=== PATIENT | female | born 1935 | race Caucasian/White ===

== ENCOUNTER → 2021-12-18 | Outpatient (CLI) | payer MEDICARE, BC | LOC: COL.RAD 10:54 | DX: I63.9 Cerebral infarction, unspecified (principal) ==

== ENCOUNTER → 2021-12-26 | Outpatient (CLI) | payer MEDICARE, BC ==
[~2021-12-26] MED LIST: ASPIRIN 81M81 MG/TA2 PO; CRESTOR5 MG PO; DULCOLAX STOOL100 MG PO; LIPITOR 40MG TA40 MG PO; LOPRESSOR 225 MG/TAB PO; MELATONIN3 M1 PO; MIRALAX PA17 GM/Dose PO; MYLANTA 150 ML150 M1 PO; NEURONTIN100 MG/CAP PO; PLAVIX 75MG TAB75 MG PO; PREPARATIO1 SUPP.REC RC; TYLENOL 325MG325 MG PO; ULTRAM 50MG TAB50 MG PO
== END ==
LOC: COL.RAD 11:03
DX: I69.398 Other sequelae of cerebral infarction (principal); G93.89 Other specified disorders of brain

== ENCOUNTER 2022-03-08 16:43 | Emergency (ER) | payer MEDICARE, BC ==
[~2022-03-08] VITALS: Ht 157.5 cm; Wt 52.7 kg
[2022-03-08 17:22] VITALS: TEMP 99.2
[2022-03-08 18:15] LABS: BASO % 0.5 % (0.0-2.0); EOS # 0.1 K/mm3 (0.0-0.7); EOS % 2.1 % (0.0-4.0); GRAN # 3.8 K/mm3 (1.4-6.5); GRAN % 62.2 % (42.2-75.2); HEMATOCRIT 37.3 % (37.0-47.0); HEMOGLOBIN 12.4 g/dl (12.5-16.0); LYMPH # 1.5 K/mm3 (1.2-3.4); LYMPH % 24.2 % (20.0-51.0); MEAN CELL VOLUME 91 fl (80.0-100.0); MEAN CORPUSCULAR HEMOGLOBIN 30 pg (27-31); MEAN CORPUSCULAR HGB CONC 33 g/dl (33.0-37.0); MEAN PLATELET VOLUME 8.8 fl (7.4-10.4); MONO # 0.6 K/mm3 (0.1-0.6); MONO % 10.4 % (1.7-9.3); PLATELET COUNT 282 K/mm3 (130-400); RED BLOOD COUNT 4.11 M/mm3 (4.10-5.30); REDCELL DISTRIBUTION WIDTH-CV 16.2 % (11.5-14.5)
[2022-03-08 18:20] LABS: INR 1.1 (0.8-3.0); PROTHROMBIN TIME 12.3 SECONDS (9.7-12.8)
[2022-03-08 18:32] LABS: ALBUMIN 3.3 gm/dL (3.4-4.8); BILIRUBIN,TOTAL 0.6 mg/dL (0.2-1.2); CALCIUM 8.8 mg/dL (8.4-10.2); CREATININE, serum 0.69 mg/dL (0.57-1.11); POTASSIUM 4.7 mmol/L (3.5-4.5); TOTAL PROTEIN 6.5 gm/dL (6.2-8.1)
[2022-03-08 18:38] LABS: TROPONIN-I 0.012 ng/mL (0.00-0.033)
[2022-03-08 19:02] LABS: COLLECTION METHOD CLEAN CATCH
[2022-03-08 19:06] LABS: URINE APPEARANCE Clear (CLEAR/HAZY); URINE COLOR Yellow (YELLOW); URINE PROTEIN(semi-quant) Negative (NEGATIVE)
[2022-03-08 19:07] LABS: URINE BLOOD TRACE-LYSED (NEGATIVE); URINE GLUCOSE Negative (NEGATIVE); URINE KETONE Negative (NEGATIVE); URINE NITRATE Negative (NEGATIVE); URINE UROBILINOGEN 0.2 E.U/dL (0.2-1.0)
[2022-03-08 19:09] LABS: SQUAMOUS EPITHELIAL None Seen /hpf (0-10); URINE BACTERIA None Seen /hpf (NONE SEEN); URINE RBC 0-2 /hpf (0-2)
[2022-03-08 19:50] VITALS: BP 160/96; PULSE 70
[2022-03-10] MEDS ORDERED: CEPHALEXIN500 M1 PO (15:39)
[2022-03-11] MEDS ORDERED: PEN-VEE K500 MG PO ×2 (13:49→14:47)
== END 2022-03-08 19:58 | disposition home or self-care (01) ==
LOC: COL.ER 16:43
PROVIDERS: Physician Assistant
DX: R42 Dizziness and giddiness (principal)
CPT/HCPCS: J7030

== ENCOUNTER → 2022-04-10 | Outpatient (CLI) | payer MEDICARE, BC ==
[~2022-04-10] MED LIST changes: +CEPHALEXIN500 M1 PO; +PEN-VEE K500 MG PO
== END ==
LOC: COL.VAS 11:07
DX: Z86.718 Personal history of other venous thrombosis and embolism (principal); R22.42 Localized swelling, mass and lump, left lower limb

== ENCOUNTER → 2022-04-17 | Outpatient (CLI) | payer MEDICARE, BC ==
[2022-04-17 09:17] LABS: ALBUMIN 3.4 gm/dL (3.4-4.8); CALCIUM 8.7 mg/dL (8.4-10.2); CHOLESTEROL RISK RATIO 3.4; CREATININE, serum 0.76 mg/dL (0.57-1.11); POTASSIUM 4.8 mmol/L (3.5-4.5); TOTAL PROTEIN 6.2 gm/dL (6.2-8.1)
== END ==
LOC: ZCOL.LAB 08:03
PROVIDERS: Internal Medicine
DX: E87.1 Hypo-osmolality and hyponatremia (principal); E87.5 Hyperkalemia; I10 Essential (primary) hypertension

== ENCOUNTER → 2022-09-24 | Outpatient (REF) | payer MEDICARE, BC ==
[2022-09-24 12:16] LABS: COLLECTION METHOD CLEAN CATCH
[2022-09-24 12:46] LABS: SQUAMOUS EPITHELIAL 0-2 /hpf (0-10); URINE APPEARANCE Clear (CLEAR/HAZY); URINE BACTERIA None Seen /hpf (NONE SEEN); URINE BLOOD Negative (NEGATIVE); URINE COLOR Yellow (YELLOW); URINE GLUCOSE Negative (NEGATIVE); URINE KETONE Negative (NEGATIVE); URINE NITRATE Negative (NEGATIVE); URINE PROTEIN(semi-quant) Negative (NEGATIVE); URINE RBC 0-2 /hpf (0-2); URINE UROBILINOGEN 0.2 E.U/dL (0.2-1.0)
== END ==
LOC: ZCOL.LAB 10:55
PROVIDERS: Family Medicine
DX: N39.0 Urinary tract infection, site not specified (principal)

== ENCOUNTER → 2022-10-01 | Outpatient (CLI) | payer MEDICARE, BC | LOC: COL.RAD 13:49 | DX: I63.9 Cerebral infarction, unspecified (principal); G93.89 Other specified disorders of brain ==